=== PATIENT | female | born 1955 | race Caucasian/White ===

== ENCOUNTER → 2017-02-10 | Outpatient (CLI) | payer BC ==
[~2017-02-10] MED LIST: ASPI81TA2 PO; ATOR10TA64 PO; BENA10TA3 PO; FLUO-137 PO; FLUT16SP EA NOSTRIL; LORA-326 PO; METF10002 PO; TRIA1TAB3 PO
== END ==
LOC: WC.BC 13:02
DX: Z12.31 Encounter for screening mammogram for malignant neoplasm of breast (principal)
CPT/HCPCS: 77063; G0202